=== PATIENT | male | born 1985 | race Two or more races ===

== ENCOUNTER 2019-03-09 19:08 | Emergency (ER) | payer OTHER ==
[~2019-03-09] VITALS: Ht 177.8 cm; Wt 113.4 kg
[2019-03-09] MEDS ORDERED: ZESTRIL40 M1 (20:04)
== END 2019-03-09 20:44 | disposition home or self-care (01) ==
LOC: ER 19:08
DX: S30.1XXA Contusion of abdominal wall, initial encounter (principal); W18.09XA Striking against other object with subsequent fall, initial encounter; Y93.89 Activity, other specified; Y92.69 Other specified industrial and construction area as the place of occurrence of the external cause; Y99.8 Other external cause status